=== PATIENT | female | born 1955 | race Caucasian/White ===

== ENCOUNTER 2017-09-04 16:40 | Emergency (ER) | payer OTHER ==
[~2017-09-04] VITALS: Ht 165.1 cm; Wt 56.7 kg
[2017-09-04] VITALS (7 sets, daily range): BP systolic 100–149; BP diastolic 59–80; PULSE 74–95; RESP 16–18; TEMP 98.2; O2SAT 95–100
[~2017-09-04 16:40] MED LIST: AMOX875T20 PO; GABA300 PO
--- NOTE | 2017-09-04 16:49 | PD ---
HPI Chief Complaint: Foreign Body Time Seen by Provider: 16:48 Travel History International Travel<30 days: No Contact w/Intl Traveler<30days: No Traveled to known affect area: No History of Present Illness HPI Patient comes in complaining of about 6 hours of feeling like she has those chicken liver is stuck on her throat, she points to the sternal notch. Patient is able to swallow and tolerate her own secretions. Patient denies any wheezing or shortness of breath or trouble breathing. Patient also denies any alleviating or aggravating factors. Patient tried to gag herself n.p.o. get up but she was unable to. Patient tried to swallow soda but she still feels the sensation there. Patient states allergy to Lortab which cause nausea and vomiting as well as oxycodone Previous history significant for tonsillectomy and chronic back pain PFSH Past Medical History Musculoskeletal: Yes (chronic back pain) ?: Not Past Surgical History Tonsillectomy: Yes Social History Alcohol Use: No Tobacco Use: No Substance Use: No Allergies-Medications (Allergen,Severity, Reaction): Coded Allergies: acetaminophen (Unverified Adverse Reaction, Intermediate, Nausea/Vomiting , 09/04/17) hydrocodone (Unverified Adverse Reaction, Intermediate, Nausea/Vomiting, ) oxycodone (Unverified Adverse Reaction, Intermediate, Nausea/Vomiting, ) Reported Meds & Prescriptions Reported Meds & Active Scripts Active Reported Morphabond ER 12 HR (Morphine Sulfate) 60 Mg Tab 60 Mg PO Q12H Alprazolam 0.5 Mg Tab 0.5 Mg PO Q8H PRN Gabapentin 600 Mg Tab 600 Mg PO TID Review of Systems General / Constitutional: No: Fever Eyes: No: Visual changes HENT: No: Headaches Cardiovascular: No: Chest Pain or Discomfort Respiratory: No: Shortness of Breath Gastrointestinal: Positive: Dysphagia Genitourinary: No: Dysuria Musculoskeletal: No: Pain Skin: No Rash Neurologic: No: Weakness Psychiatric: No: Depression Endocrine: No: Polydipsia Hematologic/Lymphatic: No: Easy Bruising Physical Exam Narrative GENERAL: SKIN: Warm and dry. HEAD: Atraumatic. Normocephalic. EYES: Pupils equal and round. No scleral icterus. No injection or drainage. ENT: No nasal bleeding or discharge. Mucous membranes pink and moist. NECK: Trachea midline. No JVD. No stridor CARDIOVASCULAR: Regular rate and rhythm. RESPIRATORY: No accessory muscle use. Clear to auscultation. Breath sounds equal bilaterally. No wheezing GASTROINTESTINAL: Abdomen soft, non-tender, nondistended. MUSCULOSKELETAL: Extremities without clubbing, cyanosis, or edema. No obvious deformities. NEUROLOGICAL: Awake and alert. No obvious cranial nerve deficits. Motor grossly within normal limits. Five out of 5 muscle strength in the arms and legs. Normal speech. PSYCHIATRIC: Appropriate mood and affect; insight and judgment normal. Data Data Last Documented VS Vital Signs Date Time Temp Pulse Resp B/P (MAP) Pulse Ox O2 Delivery O2 Flow Rate FiO2 09/04/17 16:42 98.2 95 18 144/80 (101) 99 Orders Orders Iv Access Insert/Monitor (09/04/17 16:57) Lorazepam Inj (Ativan Inj) (09/04/17 17:00) Glucagon Inj (Glucagon Inj) (09/04/17 17:00) Al-Mag Hy-Si 40-40-4 Mg/Ml Liq (Mag-Al P (09/04/17 17:00) Lidocaine 2% Viscous (Xylocaine 2% Visco (09/04/17 17:00) MDM Medical Decision Making Medical Screen Exam Complete: Yes Emergency Medical Condition: Yes Medical Record Reviewed: Yes Differential Diagnosis Esophageal foreign body versus transient versus permanent versus full esophageal obstruction versus partial obstruction Narrative Course The patient was given a combination of glucagon, Ativan and GI cocktail. After the patient received these medications the patient is now fully symptom-free and feels much better. Diagnosis Primary Impression: Dysphagia Referrals: Manjula Posada MD For further evaluation of your progressive difficulty swallowing, as it is likely esophageal stenosis as the cause. Patient Instructions: Esophageal Foreign Body (ED), General Instructions Disposition: 01 DISCHARGE HOME Condition: Stable [place]in[place]urn,Noel Perez MD Sep 04, 2017 16:49
[2017-09-04] MEDS ORDERED: LORazepam 2 MG/ML VIAL IV PUSH ONE (17:00)
[2017-09-04] MEDS ORDERED: LIDOCAINE VISCOUS 2% SOLN 15 ML UDC PO ONE (17:00)
[2017-09-04] MEDS ORDERED: ALUMINUM/MAGNESIUM/SIMETH 30 ML CUP PO ONE (17:00)
[2017-09-04] MEDS ORDERED: GLUCAGON 1 MG/ML VIAL IV PUSH ONE (17:00)
[2017-09-04] MEDS ORDERED: ALPR0.5T3 PO (17:05)
[2017-09-04] MEDS ORDERED: GABA600T PO (17:05)
[2017-09-04] MEDS ORDERED: MORP60TA61 PO (17:05)
[2017-09-05 00:10] VITALS: BP 106/61
== END 2017-09-05 00:21 | disposition home or self-care (01) ==
LOC: PHED 16:40
DX: R13.10 Dysphagia, unspecified (principal); Z88.5 Allergy status to narcotic agent; Z88.6 Allergy status to analgesic agent; Z79.899 Other long term (current) drug therapy
CPT/HCPCS: 96374; 96375; 99284; J1610; J2060